=== PATIENT | female | born 1970 | race Caucasian/White ===

== ENCOUNTER 2016-07-03 22:07 | Inpatient (IN) ==
[2016-07-04 00:46] LABS: Bilirubin,Urine Negative (Negative); Blood,Urine Negative (Negative); Clarity,Urine Clear (Clear); Color,Urine Yellow (Yellow); Glucose,Urine (UA) Normal (Normal); Ketones,Urine Negative (Negative); Leukocyte Esterase,Urine Negative (Negative); Nitrite,Urine Negative (Negative); Protein,Urine 100 mg/dL (Neg-Trace); Specific Gravity,Urine 1.021 (1.010-1.025); Urobilinogen,Urine Normal (Normal)
[2016-07-04 00:49] LABS: Bacteria,Urine Few per hpf (None-Few); Hyaline Casts,Urine None Seen per lpf (None-Few); RBC,Urine 0-3 per hpf (0-3); Squamous Epithelial Cell,Urine Many per lpf (None-Few)
[2016-07-04 01:32] LABS: Basophils # 0.1 K/mcL (0.0-0.2); Basophils % 0.4 %; Eosinophils # 0.3 K/mcL (0.0-0.6); Eosinophils % 1.4 %; Hematocrit 43.8 % (35.3-44.9); Hemoglobin 15.1 g/dL (11.5-15.4); Immature Granulocytes % 0.3 % (0-4); Lymphocytes # 1.8 K/mcL (0.6-4.6); Lymphocytes % 10.1 %; Mean Corpuscular HGB Conc 34.5 g/dL (31.6-35.5); Mean Corpuscular Hemoglobin 30.5 pg (28.0-33.3); Mean Corpuscular Volume 88.5 fL (83.0-100.0); Mean Platelet Volume 11.1 fL (9.4-12.4); Monocytes # 0.9 K/mcL (0.0-1.3); Monocytes % 5.2 %; Neutrophils # 14.4 K/mcL (1.6-8.9); Platelet Count 339 K/mcL (140-400); Red Blood Count 4.95 M/mcL (3.82-4.97); Segmented Neutrophils % 82.6 %
[2016-07-04 01:48] LABS: Calcium 8.5 mg/dL (8.6-10.8); Potassium 3.2 mEq/L (3.5-4.5)
[2016-07-04] MEDS ORDERED: Ketorolac 60 MG/2 ML VIAL IM ONE (02:03)
[2016-07-04] MEDS ORDERED: 0.9 % Sodium Chloride 1,000 ML IVC ONE (03:53)
[2016-07-04] MEDS ORDERED: *HR* HYDROmorphone (PF) 1 MG/ML SYRINGE IVP ONE (04:02)
--- NOTE | 2016-07-04 04:13 | Emergency Department Note ---
Disposition Clinical Impression: Ureterolithiasis, Acute kidney injury Hydronephrosis Qualifiers: Hydronephrosis type: with renal calculous obstruction Qualified Code(s): N13.2 - Hydronephrosis with renal and ureteral calculous obstruction Disposition: Admitted As Inpatient Condition: Good General Adult HPI - General Chief complaint: ED Abdominal Pain Stated complaint: "Poss. Kidney Stone" Time Seen by Provider: 07/04/16 02:03 Source: patient Mode of arrival: private vehicle Limitations: no limitations Nursing Notes Reviewed: Yes Vital Signs Reviewed: Yes - History of Present Illness HPI Narrative: 46-year-old female history of multiple renal stones requiring extraction and stenting in the past who presents to the ER with a chief complaint of left flank pain. Patient reports symptoms began around Sunday. Reports intermittent left flank pain described as sharp. Patient is also had nausea but no vomiting or diarrhea. No fevers that she is aware. No sick contacts. Patient states it feels like when she usually has her kidney stones. Reports her last renal stone was back in July 2015 which required stent at that time. No other complaints. Pt Subjective Complaint: left flank pain, nausea Onset (ago): day(s) Location: other (Left flank) Radiation: non-radiation Pain Severity: severe Pain Scale: 8 Quality: stabbing Consistency: intermittent Improves with: nothing Worsens with: nothing Associated symptoms: Reports: nausea/vomiting. Denies: chest pain, cough, fever /chills Treatments Prior to Arrival: none - Related Data Home Medications Medication Instructions Recorded Confirmed Calcium Carbonate [Calcium] 500 mg PO DAILY 07/04/16 07/04/16 Cyanocobalamin (B-12) [Vitamin B12] 1,000 mcg IM Q2W 07/04/16 07/04/16 Esomeprazole Magnesium [Nexium 22.3 mg PO DAILY 07/04/16 07/04/16 24Hr] Ferrous Sulfate [Iron] 325 mg PO DAILY 07/04/16 07/04/16 Multivitamin [Multi-Day Vitamins] 1 tab PO DAILY 07/04/16 07/04/16 Vitamin B Complex 1 tab PO DAILY 07/04/16 07/04/16 Allergies Allergy/AdvReac Type Severity Reaction Status Date / Time Sulfa (Sulfonamide AdvReac causes Verified 07/04/16 00:20 Antibiotics) crohns flare up All systems ED: reviewed and negative except as stated. Constitutional: Denies: fever Cardiovascular: Denies: chest pain Respiratory: Denies: cough, dyspnea Gastrointestinal: Reports: abdominal pain, nausea. Denies: vomiting, diarrhea Genitourinary: Denies: dysuria, hematuria Musculoskeletal: Reports: back pain (Left flank pain) Past Medical History - Past Medical History Attestation: Yes The following information was validated with the patient. Source: patient Medical history: Reports: asthma, GERD, kidney stones, other Surgical history: Reports: cholecystectomy, hysterectomy, other Psychiatric history: Reports: no psych history - Social History Smoking Status: Never smoker Smokeless Tobacco Status: No Alcohol use: Reports: none Drug use: Reports: none Physical Exam - General Limitations: no limitations General appearance: alert, in no apparent distress - Head Head exam: atraumatic, normocephalic, normal inspection - Eye Eye exam: Present: normal appearance, EOMI - ENT ENT exam: normal exam - Neck Neck exam: Present: normal inspection - Chest Chest inspection: Present: normal inspection, symmetric chest wall rise - Respiratory Respiratory exam: Present: normal lung sounds bilaterally - Cardiovascular Cardiovascular exam: Present: normal rhythm, tachycardia, normal heart sounds - Abdominal Exam Abdominal exam: Present: soft, Non-Tender. Absent: tenderness - Extremities Exam Extremities exam: Present: normal inspection, full ROM - Expanded Upper Extremity Exam Shoulder exam: Present: normal inspection, full ROM Arm exam: Present: normal inspection, full ROM Elbow exam: Present: normal inspection, full ROM Forearm/Wrist exam: Present: normal inspection, full ROM Hand exam: Present: normal inspection, full ROM - Expanded Lower Extremity Exam Hip/Pelvis exam: Present: normal inspection, full ROM Upper leg exam: Present: normal inspection, full ROM Knee exam: Present: normal inspection, full ROM Lower leg exam: Present: normal inspection, full ROM Ankle exam: Present: normal inspection, full ROM Foot/toe exam: Present: normal inspection, full ROM - Back Exam Back exam: Present: CVA tenderness (L) (Patient exhibits left CVA tenderness with palpation.) - Neurological Exam Neurological exam: Present: alert - Psychiatric Psychiatric exam: Present: normal affect, normal mood - Skin Skin exam: Present: warm, dry, intact, normal color Course Course Narrative: Patient seen and examined. Vital signs reviewed. Patient has left flank pain on exam. Bedside ultrasound demonstrates a left hydro. We will get a CT scan of the abdomen and pelvis giving her acute kidney injury. We will also give her some fluids, Cipro for her white count and few WBCs and some pain control. - Reevaluation(s) Reevaluation #1: Discussed results of imaging with the patient. Her pain is currently under control. - Consultations Consultation #1: I discussed this case with the on-call urologist. They report to admit the patient to the hospitalist service and they will consult. Vital Signs Temperature 98.9 F 07/04/16 00:17 Pulse Rate 110 07/04/16 00:17 Respiratory Rate 20 07/04/16 00:17 Blood Pressure 137/88 07/04/16 00:17 O2 Sat by Pulse Oximetry 99 07/04/16 00:17 Temperature 98.2 F 07/05/16 00:41 Pulse Rate 78 07/05/16 00:41 Respiratory Rate 14 07/05/16 00:41 Blood Pressure 126/73 07/05/16 00:41 O2 Sat by Pulse Oximetry 94 L 07/05/16 00:41 Oxygen Delivery Oxygen Delivery Room Air Medical Decision Making - MDM Narrative Medical decision making narrative: 46-year-old female presents to the ER due to left flank pain. While known history of stones in the past. CT scan shows a 5 mm stone in the left mid ureter. Patient has acute kidney injury with a creatinine of 4.88. Patient given fluids, Cipro, Dilaudid here. Urology consulted in the ER. Admitted to the hospitalist service. - Lab Data Lab results reviewed: Yes I reviewed the patient's lab results. Result diagrams: 07/04/16 01:16 07/04/16 01:16 Lab Results 07/04/16 07/04/16 07/04/16 Range/Units 00:30 01:16 01:16 WBC 17.4 H (4.3-11.1) K/mcL RBC 4.95 (3.82-4.97) M/mcL Hgb 15.1 (11.5-15.4) g/dL Hct 43.8 (35.3-44.9) % MCV 88.5 (83.0-100.0) fL MCH 30.5 (28.0-33.3) pg MCHC 34.5 (31.6-35.5) g/dL RDW 13.0 (11.5-14.5) % Plt Count 339 (140-400) K/mcL MPV 11.1 (9.4-12.4) fL Immature Gran % 0.3 (0-4) % Seg Neutrophils % 82.6 % Lymphocytes % 10.1 % Monocytes % 5.2 % Eosinophils % 1.4 % Basophils % 0.4 % Neutrophils # 14.4 H (1.6-8.9) K/mcL Lymphocytes # 1.8 (0.6-4.6) K/mcL Monocytes # 0.9 (0.0-1.3) K/mcL Eosinophils # 0.3 (0.0-0.6) K/mcL Basophils # 0.1 (0.0-0.2) K/mcL Sodium 137 (136-145) mEq/L Potassium 3.2 L (3.5-4.5) mEq/L Chloride 107 (98-109) mEq/L Carbon Dioxide 15 L (19-29) mEq/L BUN 29 H (7-20) mg/dL Creatinine 4.88 H (0.57-1.11) mg/dL Est GFR ( Amer) 12 L (> 60) Est GFR (Non-Af Amer) 10 L (> 60) BUN/Creatinine Ratio 6 (6-26) Glucose 105 H (70-99) mg/dL Calculated Osmolality 290 (280-300) Calcium 8.5 L (8.6-10.8) mg/dL Urine Color Yellow (Yellow) Urine Clarity Clear (Clear) Urine pH 6.0 (5.0-8.0) pH Units Ur Specific [place] 1.021 (1.010-1.025) Urine Protein 100 H (Neg-Trace) mg/dL Urine Glucose (UA) Normal (Normal) mg/dL Urine Ketones Negative (Negative) mg/dL Urine Blood Negative (Negative) Urine Nitrite Negative (Negative) Urine Bilirubin Negative (Negative) Urine Urobilinogen Normal (Normal) mg/dL Ur Leukocyte Esterase Negative (Negative) Urine Microscopic RBC 0-3 (0-3) per hpf Urine Microscopic WBC 3-5 H (0-3) per hpf Ur Squamous Epith Cells Many H (None-Few) per lpf Urine Bacteria Few (None-Few) per hpf Hyaline Casts None Seen (None-Few) per lpf Ur Culture Indicated? NO (NO) - Radiology Data Radiology results reviewed: Yes I reviewed the patient's radiology results. Abdomen/Pelvis CT 07/04/16 03:51 IMPRESSION: Left-sided hydroureteronephrosis with stones in both kidneys and a 5 mm stone in the mid left ureter. D/ / Wes Melgar MD / Wes Melgar MD Interpreting Provider: Wes Melgar MD S.B.AKofi - S.Nyasia Situation: Demographics, MOA Background: Presenting Complaint, Relevant PMH, Meds, & Allergies Assessment: Vital Signs, Course and respsone to treatment, Exam Concerns, Patient/Family Expectation, Pertinant Lab Results, Outstanding Labs Recommendation: Barrier(s) to disposition, Recommendation based on pending studies, treatments, or consults SEzequiel Report Given to: Dr. Lamine Flores Repor Time: 05:57 Attestation Statement - Attestation Attestation: I personally interviewed and examined this patient and my medical decision- making was reviewed with the ED Resident Physician, Dr. Betts. I agree with the documented findings, disposition and treatment plan as described in the documentation. Patient is a 46-year-old white female with a history of prior kidney stones who presents to the emergency department today with worsening left flank pain. Patient denies any fevers chills, no vomiting, no urinary symptoms. Patient states it feels similar to prior kidney stones that she has passed and is isolated to the left flank area. Patient denies any abdominal pain. Patient with left flank tenderness to palpation on exam, abdomen is benign, soft and nontender to palpation with positive bowel sounds. Remainder of exams within normal limits. Agents labs are significant for worsening renal insufficiency with a significantly elevated creatinine from her baseline. Suspicious of possible obstructive uropathy CT was obtained showing a 5 mm obstructing stone on the left with left [place]. Patient with multiple stones in both kidneys. We will admit the patient for obstructive uropathy and renal insufficiency. Patient with a leukocytosis with a left shift, on initial assessment concerned with possible overlying infection so antibiotics were initiated here in the ED. Patient has remained hemodynamically stable.
--- NOTE | 2016-07-04 07:28 | Urology - Consult Note ---
Date of Encounter: 07/04/16 Time of Encounter: 07:18 - Assessment and Plan (1) Ureterolithiasis Current Visit: Yes Status: Acute Assessment and plan: plan on cysto and left ureteral stent today (2) Acute kidney injury Current Visit: Yes Status: Acute Assessment and plan: IVF and will likely improve with stent. per primary team Urology CN:PERRI Consult date: 07/04/16 Reason for consult Urology: Hydronephrosis Requesting physician: Jim Raman History of present illness: Saba is a 46-year-old female who presented emergency Department with severe left-sided flank pain. Patient was also not feeling well for the past couple days. She is a known history of kidney stones. Her last stone extraction was done in July 2015. Patient had a markedly elevated serum creatinine of 4.88. Her white count was also elevated. Her pain is currently controlled with IV pain medication at this time. She was found to have a left mid ureteral stone. Past Med Surg Social Fam HX - Past Medical History Medical history: asthma, GERD, kidney stones, renal disease, other Psychiatric history: no psych history, depression - Past Surgical History Surgical History: cholecystectomy, hysterectomy, other - Social History Smoking Status: Never smoker Smokeless Tobacco Status: No Alcohol use: none Drug use: none - Family History Mother Adopted: [place]: Rina Ball Age: 67 Family Member Ethnicity: Non- Living Status: Still Living Hx Family Cardiac Disorders: Yes (arrhythmia) Hx Family Respiratory Disorders: No Hx Family Cancer: No Hx Family GI Disorders: Yes (mild crohn's disease) Hx Family Genitourinary Disorders: No Hx Family Endocrine Disorder: Yes (boarderline diabetic) Hx Family Musculoskeletal Disorders: No Hx Family Neuromuscular Disorders: No Hx Family Neurologic Disorders: Yes (DDD, CVA) Hx Family HEENT Disorders: No Hx Family Autoimmune Disorders: Yes (Crohn's disease) Hx Family Reproductive Disorders: Yes (fibroids, miscarriages) Hx Family Psychosocial Disorders: No Hx Family Medical Disorders: No Medications and Allergies Cyanocobalamin (B-12) [Vitamin B12] 1,000 mcg IM Q2W 07/04/16 [History] Esomeprazole Magnesium [Nexium 24Hr] 22.3 mg PO DAILY 07/04/16 [History] Allergies Sulfa (Sulfonamide Antibiotics) Adverse Reaction (Verified 07/04/16 00:20) causes crohns flare up Review of Systems - Constitutional no chills - EENT Nose, mouth and throat: no dizziness - Cardiovascular no chest pain - Respiratory no cough - Gastrointestinal abdominal pain - Musculoskeletal back pain - Integumentary no erythema - Neurological no confusion - Psychiatric no anxiety - Hematologic/Lymphatic no easy bleeding - Allergic/Immunologic no throat swelling Exam Initial Vital Signs Temp Pulse Resp BP Pulse Ox 98.9 F 110 20 137/88 99 07/04/16 00:17 07/04/16 00:17 07/04/16 00:17 07/04/16 00:17 07/04/16 00:17 - General physical appearance Present: well developed - Eyes Present: PERRL - Neck Present: no masses - Respiratory Present: normal respiratory effort - Cardiovascular Cardiovascular exam IM: RRR - Abdomen Abdomen: Present: soft - Integumentary Present: no rash - Neurologic Present: normal coordination Urology Results - Labs 07/04/16 01:16 07/04/16 01:16 Abnormal lab results WBC 17.4 K/mcL (4.3-11.1) H 07/04/16 01:16 Neutrophils # 14.4 K/mcL (1.6-8.9) H 07/04/16 01:16 Potassium 3.2 mEq/L (3.5-4.5) L 07/04/16 01:16 Carbon Dioxide 15 mEq/L (19-29) L 07/04/16 01:16 BUN 29 mg/dL (7-20) H 07/04/16 01:16 Creatinine 4.88 mg/dL (0.57-1.11) H 07/04/16 01:16 Est GFR ( Amer) 12 (> 60) L 07/04/16 01:16 Est GFR (Non-Af Amer) 10 (> 60) L 07/04/16 01:16 Glucose 105 mg/dL (70-99) H 07/04/16 01:16 Calcium 8.5 mg/dL (8.6-10.8) L 07/04/16 01:16 Urine Protein 100 mg/dL (Neg-Trace) H 07/04/16 00:30 Urine Microscopic WBC 3-5 per hpf (0-3) H 07/04/16 00:30 Ur Squamous Epith Cells Many per lpf (None-Few) H 07/04/16 00:30 All other labs normal. - Imaging CT scan - abdomen: image reviewed CT scan - pelvis: image reviewed Consult Discharge Plan - Plan Referrals: Zoë Carrillo MD [Primary Care Provider] -
[2016-07-04] MEDS: 0.9 % Sodium Chloride 1,000 ML IVC SCH ×4 (08:03→23:09)
[2016-07-04] MEDS ORDERED: Ondansetron 4 MG/2 ML VIAL IVP PRN (08:06)
[2016-07-04] MEDS ORDERED: *HR* Promethazine 25 MG/ML VIAL IVP PRN ×2 (08:06→09:31)
[2016-07-04] MEDS ORDERED: Naloxone 0.4 MG/ML INJ IVP PRN (08:06)
[2016-07-04] MEDS ORDERED: Acetaminophen 325 MG TABLET PO PRN (08:06)
--- NOTE | 2016-07-04 08:35 | Anesthesia Evaluation PreOp ---
Date of Encounter: 07/04/16 Time of Encounter: 08:35 - Past History Planned Operation: Cysroscopy Left Ureteral Stent Cardiac History: Denies any Significant Hx Pulmonary History: Denies Any Significant HX TIME STUDY ANALYST History: Denies Any Significant HX Other Medical History: Renal (Acute Renal Failure), Other (Crohn's) Anesthesia History: No Prior Anesthetic Complications : No (Hysterectomy) Alcohol Use: none Drug use: none Medications and Allergies Calcium Carbonate [Calcium] 500 mg PO DAILY 07/04/16 [History] Cyanocobalamin (B-12) [Vitamin B12] 1,000 mcg IM Q2W 07/04/16 [History] Esomeprazole Magnesium [Nexium 24Hr] 22.3 mg PO DAILY 07/04/16 [History] Ferrous Sulfate [Iron] 325 mg PO DAILY 07/04/16 [History] Multivitamin [Multi-Day Vitamins] 1 tab PO DAILY 07/04/16 [History] Vitamin B Complex 1 tab PO DAILY 07/04/16 [History] Allergies Sulfa (Sulfonamide Antibiotics) Adverse Reaction (Verified 07/04/16 00:20) causes crohns flare up - Meds/Allergy Pre-op Review Medications Reviewed: Yes Allergies Reviewed: Yes Beta Blockers on Current Med List: No Anesthesia Results - Labs 07/04/16 01:16 07/04/16 01:16 Anesthesia Exam O2 Sat Height 1.57 m Weight 60.781 kg O2 Sat by Pulse Oximetry 98 O2 Sat by Pulse Oximetry 98 O2 Sat by Pulse Oximetry 98 O2 Sat by Pulse Oximetry 99 Vital Signs Temp Pulse Resp BP Pulse Ox 98.9 F 110 20 137/88 99 07/04/16 00:17 07/04/16 00:17 07/04/16 00:17 07/04/16 00:17 07/04/16 00:17 Height: 5'2 Weight: 134 lbs NPO (# of Hours): MN Pain Scale: 0 - HEENT Pupil (Motor): Pupils equal, EOMI Mallampati: II Teeth: Normal Oral Opening: Greater than 3 - TIME STUDY ANALYST LOC: Oriented TIME STUDY ANALYST Motor: Normal RUE, Normal LUE, Normal RLE, Normal LLE, Normal Face TIME STUDY ANALYST Sensory: Normal: RUE, LUE, RLE, LLE, Face - Cardiac Rhythm: Regular Murmur: None JVD: No Carotid Bruit: No - Pulmonary Breath Sounds: bilateral Clear Respiratory Effort: Symmetrical Anesthesia Assess/Plan ASA Score: 2 Modified Orange Scale for Level of Consciousness: Cooperative, oriented, and tranquil Anesthetic Plan: General Monitoring Plan: Standard Monitors Recovery Plan: PACU (Discussed GA, agrees to proceed)
[2016-07-04] MEDS ORDERED: *HR* Propofol 200 MG/20 ML VIAL IVP ONE (08:39)
[2016-07-04] MEDS ORDERED: Lidocaine -MPF 2% 2 ML VIAL ONE (08:39)
[2016-07-04] MEDS ORDERED: Dexamethasone 4 MG/ML VIAL ONE (08:39)
[2016-07-04] MEDS ORDERED: Ondansetron 4 MG/2 ML VIAL ONE (08:39)
[2016-07-04] MEDS ORDERED: *HR* FentaNYL (PF) 100 MCG/2 ML VIAL ONE (08:39)
[2016-07-04] MEDS ORDERED: *HR* Meperidine 25 MG/ML SYRINGE IVP PRN (09:31)
[2016-07-04] MEDS ORDERED: *HR* OxyCODONE/APAP 5/325 TABLET PO PRN (09:31)
--- NOTE | 2016-07-04 09:39 | Anesthesia Evaluation Post Op ---
Date of Encounter: 07/04/16 Time of Encounter: 09:39 - Vital Signs Vital Signs: vss - Lungs Lungs: Clear Ascult./Percussion - Airway Airway: Non-obstructed - Cardiovascular Baseline Rhythm - Mental Status Mental Status: Alert & Oriented, Answers Appropriately - Pain Pain Scale used: Ana (Faces) - Nausea Vomiting Nausea Vomiting: Not Present - Hydration Hydration: Tolerates oral liquids
[2016-07-04] MEDS: Piperacillin/Tazobactam 3.375 GM in D5% in Water (Mini-Bag+) 100 ML IVPB SCH ×2 (10:22→22:02)
[2016-07-04 11:13] LABS: INR 1.1; Prothrombin Time 11.8 Seconds (9.4-12.1)
[2016-07-04 11:16] LABS: Activated Partial Thrombo Time 28.3 Seconds (26.0-36.0)
--- NOTE | 2016-07-04 11:37 | Operative Note ---
Date of procedure: 07/04/16 Pre-op diagnosis: left ureteral stone and acute renal failure Post-op diagnosis: same Procedure: Cystoscopy and left 4.8 x 26 cm ureteral stent placement Anesthesia: ENEA Surgeon: Vernon Price Condition: stable Disposition: PACU Procedure in Detail: The patient was prepped and draped in normal sterile fashion. Timeout procedure performed. I then placed the rigid cystoscope into the patient's bladder and cannulated the left ureteral orifice using a Glidewire. I could not visualize the mid ureteral stone but the wire curled easily in the kidney. Immediate return of hydronephrotic urine was noted. I then placed a 4.8 x 26 cm stent with good curl seen in the kidney and in the bladder on the left side. Bladder was drained and procedure was ended.
[2016-07-04] MEDS: *HR* HYDROmorphone (PF) 1 MG/ML SYRINGE IVP PRN ×2 (14:20→23:14)
--- NOTE | 2016-07-04 16:11 | Internal Med History&Physical ---
Date of Encounter: 07/04/16 Time of Encounter: 13:00 Assessment and Plan (1) Obstructive uropathy Current visit: Yes Status: Acute No status post stent placement with relief of obstruction. We will provide IV fluid hydration and monitor kidney function. Replete electrolytes as needed. (2) Acute kidney injury Current visit: No Status: Acute IV fluids. Check BUN and creatinine in the morning. Urinalysis and culture. Avoid nephrotoxins including NSAIDs. (3) Pyelonephritis Current visit: No Status: Acute We will treat her with IV Zosyn to cover gram-negative rods and gram-positive cocci. Pain control with IV hydromorphone. The patient is at high risk for morbidity mortality and complications due to systemic infection and treatment with IV Dilaudid. (4) Crohns disease Current visit: No Status: Chronic No acute issue. Qualifiers: Gastrointestinal tract location: small intestine Digestive disease complication type: unspecified complication Qualified Code(s): K50.019 - Crohn 's disease of small intestine with unspecified complications (5) DVT prophylaxis Current visit: No Status: Acute Subcutaneous heparin. (6) Sepsis due to urinary tract infection Current visit: Yes Status: Acute IV fluids. Lactic acid was obtained and was less than 2. Follow-up urine culture and blood culture. Broad spectrum IV antibiotics. Internal Medicine - H&P: HPI Chief complaint: L flank pain Admitted From: Home Plans for Post Hospital Care: Home History of present illness: Ms. Cordero is a 46 year old female with Crohn's disease and multiple kidney stones who presented to the hospital for sudden onset left flank pain which started 3 days ago and was described as sharp, 6/10 in intensity. She tried to keep good oral hydration however pain persisted. She took some Advil with no relief so she presented to the hospital. She reports associated nausea and no vomiting or diarrhea. Workup in the emergency department revealed obstructive nephropathy and renal failure. She was taken to the OR and had a left ureteral stent placement. She tolerated the procedure well and is currently post procedure. A 10 point review of systems was performed and positive as above. Also positive for recurrent kidney stones, positive for depression and anxiety which is well controlled, diarrhea and constipation secondary to Crohn's disease, positive for seasonal allergies, negative for abnormal bleeding and bruising, joint aches and pains, skin rashes. The remainder of 10 History of systems was negative Past medical history as above Past surgical history 4 C-sections and hysterectomy and small bowel resection. Family history was negative for premature coronary artery disease in both parents. Social history the patient denies tobacco: Drug use. She is a homemaker Past Med Surg Social Fam HX - Past Medical History Medical history: asthma, GERD, kidney stones, renal disease, other Psychiatric history: no psych history, depression - Past Surgical History Surgical History: cholecystectomy, hysterectomy, other - Social History Smoking Status: Never smoker Smokeless Tobacco Status: No Alcohol use: none Drug use: none - Family History Mother Adopted: [place]: Rina Ball Age: 67 Family Member Ethnicity: Non- Living Status: Still Living Hx Family Cardiac Disorders: Yes (arrhythmia) Hx Family Respiratory Disorders: No Hx Family Cancer: No Hx Family GI Disorders: Yes (mild crohn's disease) Hx Family Genitourinary Disorders: No Hx Family Endocrine Disorder: Yes (boarderline diabetic) Hx Family Musculoskeletal Disorders: No Hx Family Neuromuscular Disorders: No Hx Family Neurologic Disorders: Yes (DDD, CVA) Hx Family HEENT Disorders: No Hx Family Autoimmune Disorders: Yes (Crohn's disease) Hx Family Reproductive Disorders: Yes (fibroids, miscarriages) Hx Family Psychosocial Disorders: No Hx Family Medical Disorders: No Internal Medicine - H&P: Meds Calcium Carbonate [Calcium] 500 mg PO DAILY 07/04/16 [History] Cyanocobalamin (B-12) [Vitamin B12] 1,000 mcg IM Q2W 07/04/16 [History] Esomeprazole Magnesium [Nexium 24Hr] 22.3 mg PO DAILY 07/04/16 [History] Ferrous Sulfate [Iron] 325 mg PO DAILY 07/04/16 [History] Multivitamin [Multi-Day Vitamins] 1 tab PO DAILY 07/04/16 [History] Vitamin B Complex 1 tab PO DAILY 07/04/16 [History] Allergies Sulfa (Sulfonamide Antibiotics) Adverse Reaction (Verified 07/04/16 00:20) causes crohns flare up All Systems PM: A 10-system review of systems was performed and is negative for pertinent findings except as documented above in the HPI. - Constitutional Vitals: Temp Pulse Resp BP Pulse Ox 98.9 F 87 20 109/64 95 07/04/16 15:46 07/04/16 15:46 07/04/16 15:46 07/04/16 15:46 07/04/16 15:46 - Head Head exam: Present: atraumatic, normocephalic - Neck Neck exam general surgery: Present: supple, trachea midline. Absent: lymphadenopathy - Respiratory Respiratory exam: Present: CTAB. Absent: accessory muscle use, rales, rhonchi, wheezes - Cardiovascular Cardiovascular exam: Present: RRR, +S1, +S2. Absent: diastolic murmur, gallop, rubs, systolic murmur - GI/Abdominal GI/Abdominal exam: Present: normal bowel sounds, soft, no peritoneal signs. Absent: distended, tenderness - Additional comments: L CVA tenderness - Extremities Exam Extremities exam: Present: warm, radial pulses palpable and symetrical. Absent : calf tenderness, cyanotic, pedal edema - Neurological Exam Neurological exam: Present: CN II-XII intact, oriented X3, no focal deficits. Absent: pronater drift, facial droop, speech deficit - Skin Skin exam: Present: dry, intact Internal Med - H&P Results - Labs CBC & Chem 7: 07/04/16 01:16 07/04/16 01:16 - Impressions ITS Impressions Fluoroscopy 07/04/16 09:05 IMPRESSION: Intraprocedural fluoroscopic spot images as above. See separate procedure report for more information. D/ / 07/04/2016 09:21:35 Franny Felix MD / earnold Interpreting Provider: Franny Felix MD
[2016-07-04] MEDS: *HR* Heparin 5,000 UNIT/ML VIAL SQ SCH (18:35)
[2016-07-04] MEDS: Famotidine 20 MG/2 ML VIAL IVP SCH (18:35)
[2016-07-05] MEDS: Famotidine 20 MG/2 ML VIAL IVP SCH ×2 (05:12→20:16)
[2016-07-05] MEDS: *HR* Heparin 5,000 UNIT/ML VIAL SQ SCH ×2 (05:12→19:59)
[2016-07-05] MEDS: 0.9 % Sodium Chloride 1,000 ML IVC SCH (05:13)
[2016-07-05 07:35] LABS: Basophils # 0.1 K/mcL (0.0-0.2); Basophils % 0.6 %; Eosinophils # 0.2 K/mcL (0.0-0.6); Eosinophils % 1.6 %; Hemoglobin 11.2 g/dL (11.5-15.4); Immature Granulocytes % 0.5 % (0-4); Immature Platelets 5.2 % (1.1-6.1); Lymphocytes # 2.7 K/mcL (0.6-4.6); Lymphocytes % 26.3 %; Mean Corpuscular HGB Conc 32.9 g/dL (31.6-35.5); Mean Corpuscular Hemoglobin 29.7 pg (28.0-33.3); Mean Corpuscular Volume 90.2 fL (83.0-100.0); Mean Platelet Volume 11.6 fL (9.4-12.4); Monocytes # 0.5 K/mcL (0.0-1.3); Monocytes % 5.2 %; Neutrophils # 6.8 K/mcL (1.6-8.9); Platelet Count 264 K/mcL (140-400); Red Blood Count 3.77 M/mcL (3.82-4.97); Red Cell Distribution Width 13.1 % (11.5-14.5); Segmented Neutrophils % 65.8 %
[2016-07-05 08:48] LABS: Calcium 7.4 mg/dL (8.6-10.8); Magnesium 0.9 mg/dL (1.6-2.6); Potassium 3.3 mEq/L (3.5-4.5)
[2016-07-05] MEDS: Piperacillin/Tazobactam 3.375 GM in D5% in Water (Mini-Bag+) 100 ML IVPB SCH (10:23)
[2016-07-05] MEDS: *HR* HYDROmorphone (PF) 1 MG/ML SYRINGE IVP PRN ×2 (10:38→22:29)
[2016-07-05] MEDS ORDERED: Magnesium Sulfate 2 GM in D5% in Water 100 ML IVPB ONE (11:56)
[2016-07-05] MEDS ORDERED: Piperacillin/Tazobactam 3.375 GM in D5% in Water (Mini-Bag+) 100 ML IVPB SCH (11:59)
--- NOTE | 2016-07-05 12:49 | Urology Progress Note ---
Date of Encounter: 07/05/16 Time of Encounter: 12:48 - Assessment and Plan (1) Ureterolithiasis Current Visit: Yes Status: Acute Assessment and plan: sp stenting. tolerating stent well (2) Acute kidney injury Current Visit: Yes Status: Acute Assessment and plan: improving. recommend one more check tomorrow morning before dc. Progress Note Narrative: POD 1 from ureteral stent placement. feeling good. creatinine down. Objective Initial Vital Signs Temp Pulse Resp BP Pulse Ox 98.9 F 110 20 137/88 99 07/04/16 00:17 07/04/16 00:17 07/04/16 00:17 07/04/16 00:17 07/04/16 00:17 - General physical appearance Present: well developed - Abdomen Present: soft - Labs 07/05/16 07:05 07/05/16 07:05 Diabetes panel 07/05/16 Range/Units 07:05 Sodium 140 (136-145) mEq/L Potassium 3.3 L (3.5-4.5) mEq/L Chloride 115 H (98-109) mEq/L Carbon Dioxide 16 L (19-29) mEq/L BUN 25 H (7-20) mg/dL Creatinine 2.85 H (0.57-1.11) mg/dL Glucose 91 (70-99) mg/dL Calcium 7.4 L (8.6-10.8) mg/dL Calcium panel 07/05/16 Range/Units 07:05 Calcium 7.4 L (8.6-10.8) mg/dL Pituitary panel 07/05/16 Range/Units 07:05 Sodium 140 (136-145) mEq/L Potassium 3.3 L (3.5-4.5) mEq/L Chloride 115 H (98-109) mEq/L Carbon Dioxide 16 L (19-29) mEq/L BUN 25 H (7-20) mg/dL Creatinine 2.85 H (0.57-1.11) mg/dL Glucose 91 (70-99) mg/dL Calcium 7.4 L (8.6-10.8) mg/dL Adrenal panel 07/05/16 Range/Units 07:05 Sodium 140 (136-145) mEq/L Potassium 3.3 L (3.5-4.5) mEq/L Chloride 115 H (98-109) mEq/L Carbon Dioxide 16 L (19-29) mEq/L BUN 25 H (7-20) mg/dL Creatinine 2.85 H (0.57-1.11) mg/dL Glucose 91 (70-99) mg/dL Calcium 7.4 L (8.6-10.8) mg/dL Consult Discharge Plan - Plan Referrals: Vernon Price MD [Partnered Physician] - Zoë Carrillo MD [Primary Care Provider] -
[2016-07-05] MEDS: Ringers Solution, Lactated 1,000 ML IVC SCH (13:29)
--- NOTE | 2016-07-05 13:54 | Internal Med Progress Note ---
<Kailash Torres - Last Filed: 07/05/16 17:18> Date of Encounter: 07/05/16 Time of Encounter: 10:30 - Assessment and plan (1) Pyelonephritis Current Visit: No Status: Acute Assessment and plan: - Complicated pyelonephritis associated with obstructive uropathy. - Urine culture no growth. - Symptomatically improves with WBC normalized. - Will switch from Zosyn to ceftriaxone. - Continue IV fluid. - Closely monitor. (2) Obstructive uropathy Current Visit: Yes Status: Acute Assessment and plan: - Status post left ureteral stent placement on 07/04. - Continue IV fluid. - Urine output 500 cc so far today. - Appreciate urology follow-up. (3) Acute kidney injury Current Visit: No Status: Acute Assessment and plan: - SCr 4.88 on admission, most likely due to postrenal obstruction. - Improves with SCr 2.85 today but not back to baseline (~1.0) yet. - Will change IV fluid to LR given BMP today suggests hyperchloremic non-anion gap metabolic acidosis. - Closely monitor renal function and electrolytes. (4) Hypokalemia Current Visit: Yes Status: Acute Assessment and plan: - K at 3.2 today. Also hypomagnesemia with Mg 0.9 today - Will give 20 meq of KCl PO today while giving 3 g of Mg supplement. - Continue to monitor. (5) Sepsis due to urinary tract infection Current Visit: Yes Status: Resolved Assessment and plan: - 2 SIRS criteria (tachycardia and leukocytosis) on admission with UTI as most likely source of infection. Lactic acid at 0.8. - Resolved as heart rate and WBC normalized. - Urine culture no growth. Blood cultures NGTD. (6) Crohns disease Current Visit: No Status: Chronic Assessment and plan: - No acute problem at this time. Qualifiers: Gastrointestinal tract location: small intestine Digestive disease complication type: unspecified complication Qualified Code(s): K50.019 - Crohn 's disease of small intestine with unspecified complications (7) DVT prophylaxis Current Visit: No Status: Acute Assessment and plan: - SQ heparin. - Subjective Interval history: No significant event noted overnight. Patient was seen and examined this morning. Patient reports pain significantly improves after the left ureteral stent placement. She has some mild nausea and diarrhea this morning but thinks it's from restarting diet after being NPO for several days. Patient denies fever , chills, vomiting. She still has some hematuria but denies dysuria or difficulty urinating. - Constitutional Vitals: Temp Pulse Resp BP Pulse Ox 98.6 F 83 16 103/66 98 07/05/16 11:00 07/05/16 11:00 07/05/16 11:00 07/05/16 11:00 07/05/16 11:00 General appearance: Present: cooperative, A&O X 3, no acute distress, answers questions appropriately - Head Head exam: Present: atraumatic, normocephalic - Eye Eye exam: Present: PERRL, conjuntiva pink, sclera anicteric Pupils: Present: PERRL - Neck Neck exam general surgery: Present: supple, trachea midline. Absent: lymphadenopathy - Respiratory Respiratory exam: Present: CTAB. Absent: accessory muscle use, rales, rhonchi, wheezes - Cardiovascular Cardiovascular exam: Present: RRR, +S1, +S2. Absent: diastolic murmur, gallop, rubs, systolic murmur - GI/Abdominal GI/Abdominal exam: Present: normal bowel sounds, soft, no peritoneal signs. Absent: distended, tenderness - Extremities Exam Extremities exam: Present: warm, radial pulses palpable and symetrical. Absent : calf tenderness, cyanotic, pedal edema - Neurological Exam Neurological exam: Present: CN II-XII intact, oriented X3, no focal deficits. Absent: pronater drift, facial droop, speech deficit - Skin Skin exam: Present: dry, intact. Absent: rash Internal Medicine: Result - Labs CBC & Chem 7: 07/05/16 07:05 07/05/16 07:05 Labs: Short CBC 07/05/16 Range/Units 07:05 WBC 10.3 (4.3-11.1) K/mcL Hgb 11.2 L D (11.5-15.4) g/dL Hct 34.0 L (35.3-44.9) % Plt Count 264 (140-400) K/mcL Neutrophils # 6.8 (1.6-8.9) K/mcL BMP 07/05/16 07:05 Sodium 140 Potassium 3.3 L Chloride 115 H Carbon Dioxide 16 L BUN 25 H Creatinine 2.85 H Glucose 91 Calcium 7.4 L - ABG Interpretation ABG results: PT/INR, D-dimer PT 11.8 Seconds (9.4-12.1) 07/04/16 10:57 Consult Discharge Plan - Plan Referrals: Vernon Price MD [Partnered Physician] - Zoë Carrillo MD [Primary Care Provider] - <Yamini Parrish - Last Filed: 07/05/16 17:35> - Constitutional Vitals: Temp Pulse Resp BP Pulse Ox 98.8 F 98 16 102/62 99 07/05/16 15:08 07/05/16 15:08 07/05/16 15:08 07/05/16 15:08 07/05/16 15:08 Internal Medicine: Result - Labs CBC & Chem 7: 07/05/16 07:05 07/05/16 07:05 Labs: Short CBC 07/05/16 Range/Units 07:05 WBC 10.3 (4.3-11.1) K/mcL Hgb 11.2 L D (11.5-15.4) g/dL Hct 34.0 L (35.3-44.9) % Plt Count 264 (140-400) K/mcL Neutrophils # 6.8 (1.6-8.9) K/mcL BMP 07/05/16 07:05 Sodium 140 Potassium 3.3 L Chloride 115 H Carbon Dioxide 16 L BUN 25 H Creatinine 2.85 H Glucose 91 Calcium 7.4 L - ABG Interpretation ABG results: PT/INR, D-dimer PT 11.8 Seconds (9.4-12.1) 07/04/16 10:57 - Attending Attestation I examined this patient and reviewed laboratory, imaging and all diagnostic data. My medical decision-making was reviewed with Dr Torres - Resident Physician. I agree with the documented findings, disposition and treatment plan as described above.
[2016-07-05] MEDS: Magnesium Sulfate 1 GM in D5% in Water 100 ML IVPB ONE ×2 (13:59→20:18)
[2016-07-06 05:20] LABS: Basophils # 0.1 K/mcL (0.0-0.2); Basophils % 0.7 %; Eosinophils # 0.5 K/mcL (0.0-0.6); Hematocrit 34.7 % (35.3-44.9); Immature Granulocytes % 0.2 % (0-4); Lymphocytes # 2.6 K/mcL (0.6-4.6); Lymphocytes % 32.1 %; Mean Corpuscular HGB Conc 33.1 g/dL (31.6-35.5); Mean Corpuscular Hemoglobin 29.4 pg (28.0-33.3); Mean Corpuscular Volume 88.7 fL (83.0-100.0); Mean Platelet Volume 11.1 fL (9.4-12.4); Monocytes # 0.4 K/mcL (0.0-1.3); Monocytes % 5.4 %; Neutrophils # 4.5 K/mcL (1.6-8.9); Platelet Count 283 K/mcL (140-400); Red Blood Count 3.91 M/mcL (3.82-4.97); Red Cell Distribution Width 13.2 % (11.5-14.5); Segmented Neutrophils % 55.6 %
[2016-07-06 05:39] LABS: Hemoglobin 11.5 g/dL (11.5-15.4)
[2016-07-06] MEDS: Famotidine 20 MG/2 ML VIAL IVP SCH ×2 (05:40→18:46)
[2016-07-06] MEDS: *HR* Heparin 5,000 UNIT/ML VIAL SQ SCH ×2 (05:40→18:50)
[2016-07-06] MEDS: Ringers Solution, Lactated 1,000 ML IVC SCH ×3 (05:41→18:49)
[2016-07-06 05:44] LABS: Calcium 7.9 mg/dL (8.6-10.8)
[2016-07-06 05:47] LABS: Potassium 3.6 mEq/L (3.5-4.5)
[2016-07-06] MEDS ORDERED: Magnesium Sulfate 1 GM in D5% in Water 100 ML IVPB ONE ×2 (09:25→12:00)
[2016-07-06] MEDS: *HR* HYDROmorphone (PF) 1 MG/ML SYRINGE IVP PRN (11:22)
--- NOTE | 2016-07-06 11:42 | Internal Med Progress Note ---
<Kailash Torres - Last Filed: 07/06/16 14:03> Date of Encounter: 07/06/16 Time of Encounter: 11:00 - Assessment and plan (1) Pyelonephritis Current Visit: No Status: Acute Assessment and plan: - Complicated pyelonephritis associated with obstructive uropathy. - Urine culture no growth. - Symptomatically improves with WBC normalized. - Patient had temperature 99.5 today, will get UA with reflex micro & culture - Continue ceftriaxone for now. - Continue IV fluid. - Closely monitor. (2) Obstructive uropathy Current Visit: Yes Status: Acute Assessment and plan: - Status post left ureteral stent placement on 07/04. - Continue IV fluid. - Urine output 2100 cc so far today. - Appreciate urology follow-up. (3) Acute kidney injury Current Visit: No Status: Acute Assessment and plan: - SCr 4.88 on admission, most likely due to postrenal obstruction. - Continue to improve with SCr 1.73 today but not back to baseline (~1.0) yet. - Continue IV LR. - Closely monitor renal function and electrolytes. (4) Hypokalemia Current Visit: Yes Status: Acute Assessment and plan: - K improves to 3.6 today with Mg 1.3 today - Will give 1 g of Mg sulfate IV. - Continue to monitor. (5) Sepsis due to urinary tract infection Current Visit: Yes Status: Resolved Assessment and plan: - 2 SIRS criteria (tachycardia and leukocytosis) on admission with UTI as most likely source of infection. Lactic acid at 0.8. - Resolved as heart rate and WBC normalized. - Urine culture no growth. Blood cultures NGTD. (6) Crohns disease Current Visit: No Status: Chronic Assessment and plan: - Patient thinks her current nausea and diarrhea are from her Crohn's disease which usually gives her those symptoms but no temperature. Qualifiers: Gastrointestinal tract location: small intestine Digestive disease complication type: unspecified complication Qualified Code(s): K50.019 - Crohn 's disease of small intestine with unspecified complications (7) DVT prophylaxis Current Visit: No Status: Acute Assessment and plan: - SQ heparin. - Subjective Interval history: No significant event noted overnight. Patient was seen and examined this morning. Patient reports left flank pain about the same as yesterday. She still has some mild nausea and diarrhea this morning but thinks bothering her a lot. Patient reports having a temperature earlier. She denies chills, vomiting. She still has some hematuria but denies dysuria or difficulty urinating. - Constitutional Vitals: Temp Pulse Resp BP Pulse Ox 99.5 F 92 18 124/65 98 07/06/16 10:45 07/06/16 10:45 07/06/16 10:45 07/06/16 10:45 07/06/16 10:45 General appearance: Present: cooperative, A&O X 3, no acute distress, answers questions appropriately - Head Head exam: Present: atraumatic, normocephalic - Eye Eye exam: Present: PERRL, conjuntiva pink, sclera anicteric - Neck Neck exam general surgery: Present: supple, trachea midline. Absent: lymphadenopathy - Respiratory Respiratory exam: Present: CTAB. Absent: accessory muscle use, rales, rhonchi, wheezes - Cardiovascular Cardiovascular exam: Present: RRR, +S1, +S2. Absent: diastolic murmur, gallop, rubs, systolic murmur - GI/Abdominal GI/Abdominal exam: Present: normal bowel sounds, soft, no peritoneal signs. Absent: distended, tenderness - Extremities Exam Extremities exam: Present: pedal edema (Mild), warm, radial pulses palpable and symetrical. Absent: calf tenderness, cyanotic - Back Exam Back exam: Present: tenderness (Some left flank tenderness to palpation.) - Neurological Exam Neurological exam: Present: CN II-XII intact, oriented X3, no focal deficits. Absent: pronater drift, facial droop, speech deficit - Skin Skin exam: Present: dry, intact Internal Medicine: Result - Labs CBC & Chem 7: 07/06/16 04:53 07/06/16 04:53 Labs: Short CBC 07/06/16 Range/Units 04:53 WBC 8.0 (4.3-11.1) K/mcL Hgb 11.5 (11.5-15.4) g/dL Hct 34.7 L (35.3-44.9) % Plt Count 283 (140-400) K/mcL Neutrophils # 4.5 (1.6-8.9) K/mcL BMP 07/06/16 04:53 Sodium 141 Potassium 3.6 Chloride 114 H Carbon Dioxide 17 L BUN 17 Creatinine 1.73 H Glucose 100 H Calcium 7.9 L - ABG Interpretation ABG results: PT/INR, D-dimer PT 11.8 Seconds (9.4-12.1) 07/04/16 10:57 - Impressions Impressions Fluoroscopy 07/04/16 09:05 IMPRESSION: Intraprocedural fluoroscopic spot images as above. See separate procedure report for more information. D/ / 07/04/2016 09:21:35 Franny Felix MD / [email or web address] Interpreting Provider: Franny Felix MD Consult Discharge Plan - Plan Referrals: Vernon Price MD [Partnered Physician] - Zoë Carrillo MD [Primary Care Provider] - <Yamini Parrish E - Last Filed: 07/06/16 18:54> - Constitutional Vitals: Temp Pulse Resp BP Pulse Ox 98.5 F 82 18 111/66 96 07/06/16 15:12 07/06/16 15:12 07/06/16 15:12 07/06/16 15:12 07/06/16 15:12 Internal Medicine: Result - Labs CBC & Chem 7: 07/06/16 04:53 07/06/16 04:53 Labs: Short CBC 07/06/16 Range/Units 04:53 WBC 8.0 (4.3-11.1) K/mcL Hgb 11.5 (11.5-15.4) g/dL Hct 34.7 L (35.3-44.9) % Plt Count 283 (140-400) K/mcL Neutrophils # 4.5 (1.6-8.9) K/mcL BMP 07/06/16 04:53 Sodium 141 Potassium 3.6 Chloride 114 H Carbon Dioxide 17 L BUN 17 Creatinine 1.73 H Glucose 100 H Calcium 7.9 L Urine 07/06/16 Range/Units 11:58 Urine Color Yellow (Yellow) Urine Clarity Cloudy A (Clear) Urine pH 6.5 (5.0-8.0) pH Units Ur Specific [place] 1.008 L (1.010-1.025) Urine Protein 30 H (Neg-Trace) mg/dL Urine Glucose (UA) Normal (Normal) mg/dL - ABG Interpretation ABG results: PT/INR, D-dimer PT 11.8 Seconds (9.4-12.1) 07/04/16 10:57 - Impressions Impressions Fluoroscopy 07/04/16 09:05 IMPRESSION: Intraprocedural fluoroscopic spot images as above. See separate procedure report for more information. D/ / 07/04/2016 09:21:35 Franny Felix MD / [email or web address] Interpreting Provider: Franny Felix MD - Attending Attestation I examined this patient and reviewed laboratory, imaging and all diagnostic data. My medical decision-making was reviewed with Kailash Clark - Resident Physician. I agree with the documented findings, disposition and treatment plan as described above.
[2016-07-06 12:10] LABS: Bilirubin,Urine Negative (Negative); Blood,Urine Large (Negative); Clarity,Urine Cloudy (Clear); Color,Urine Yellow (Yellow); Glucose,Urine (UA) Normal (Normal); Ketones,Urine Negative (Negative); Leukocyte Esterase,Urine Small (Negative); Nitrite,Urine Negative (Negative); PH,Urine 6.5 pH Units (5.0-8.0); Protein,Urine 30 mg/dL (Neg-Trace); Specific Gravity,Urine 1.008 (1.010-1.025); Urobilinogen,Urine Normal (Normal)
[2016-07-06 12:12] LABS: Bacteria,Urine None Seen per hpf (None-Few); Hyaline Casts,Urine None Seen per lpf (None-Few); RBC,Urine TNTC per hpf (0-3); Squamous Epithelial Cell,Urine Many per lpf (None-Few)
[2016-07-07] MEDS: *HR* HYDROmorphone (PF) 1 MG/ML SYRINGE IVP PRN (04:21)
[2016-07-07] MEDS: Ringers Solution, Lactated 1,000 ML IVC SCH (04:22)
[2016-07-07 04:37] LABS: Basophils % 0.5 %; Eosinophils # 0.5 K/mcL (0.0-0.6); Eosinophils % 5.4 %; Hematocrit 36.5 % (35.3-44.9); Hemoglobin 12.4 g/dL (11.5-15.4); Immature Granulocytes % 0.2 % (0-4); Lymphocytes # 2.1 K/mcL (0.6-4.6); Lymphocytes % 24.1 %; Mean Corpuscular Hemoglobin 29.5 pg (28.0-33.3); Mean Corpuscular Volume 86.9 fL (83.0-100.0); Mean Platelet Volume 11.5 fL (9.4-12.4); Monocytes # 0.5 K/mcL (0.0-1.3); Monocytes % 5.4 %; Neutrophils # 5.7 K/mcL (1.6-8.9); Platelet Count 298 K/mcL (140-400); Red Cell Distribution Width 12.9 % (11.5-14.5); Segmented Neutrophils % 64.4 %
[2016-07-07 04:55] LABS: BUN/Creatinine Ratio 8 (6-26); Blood Urea Nitrogen 9 mg/dL (7-20); Calcium 8.6 mg/dL (8.6-10.8); Carbon Dioxide 20 mEq/L (19-29); Chloride 111 mEq/L (98-109); Glucose 99 mg/dL (70-99); Osmolality,Calculated 289 (280-300); Potassium 2.9 mEq/L (3.5-4.5); Sodium 140 mEq/L (136-145); eGFR For African Americans > 60 (> 60); eGFR For Non-African Americans 56 (> 60)
[2016-07-07] MEDS: *HR* Heparin 5,000 UNIT/ML VIAL SQ SCH (05:54)
[2016-07-07] MEDS: Famotidine 20 MG/2 ML VIAL IVP SCH (05:54)
[2016-07-07] MEDS ORDERED: Magnesium Sulfate 2 GM in D5% in Water 100 ML IVPB ONE ×2 (07:22→09:00)
[2016-07-07] MEDS ORDERED: Magnesium Sulfate 1 GM in D5% in Water 100 ML IVPB ONE (07:41)
[2016-07-07] MEDS: Magnesium Oxide 400 MG TABLET PO SCH ×2 (13:32→17:07)
--- NOTE | 2016-07-07 14:12 | Discharge Summary ---
<Kailash Torres - Last Filed: 07/07/16 16:31> Date of Encounter: 07/07/16 Time of Encounter: 11:00 - Discharge Diagnosis (1) Pyelonephritis Priority: Primary Status: Acute (2) Obstructive uropathy Priority: Primary Status: Acute (3) Acute kidney injury Priority: Secondary Status: Resolved (4) Hypomagnesemia Priority: Secondary Status: Acute (5) Hypokalemia Priority: Secondary Status: Acute (6) Crohns disease Priority: Secondary Status: Chronic Qualifiers: Gastrointestinal tract location: small intestine Digestive disease complication type: unspecified complication Qualified Code(s): K50.019 - Crohn 's disease of small intestine with unspecified complications (7) Sepsis due to urinary tract infection Priority: Secondary Status: Resolved - Discharge Medications Prescriptions: HYDROcodone/Acet 5/325 mg [[place] 5-325 mg] 1 tab PO Q6H PRN #20 tab PRN Reason: Severe Pain Levofloxacin 500 mg PO DAILY #7 tablet Magnesium Oxide [Mag-Ox] 400 mg PO TID #90 tablet Home Medications: Calcium Carbonate [Calcium] 500 mg PO DAILY 07/04/16 [History] Cyanocobalamin (B-12) [Vitamin B12] 1,000 mcg IM Q2W 07/04/16 [History] Esomeprazole Magnesium [Nexium 24Hr] 22.3 mg PO DAILY 07/04/16 [History] Ferrous Sulfate [Iron] 325 mg PO DAILY 07/04/16 [History] Multivitamin [Multi-Day Vitamins] 1 tab PO DAILY 07/04/16 [History] Vitamin B Complex 1 tab PO DAILY 07/04/16 [History] HYDROcodone/Acet 5/325 mg [[place] 5-325 mg] 1 tab PO Q6H PRN #20 tab 07/07/16 [Rx ] Levofloxacin 500 mg PO DAILY #7 tablet 07/07/16 [Rx] Magnesium Oxide [Mag-Ox] 400 mg PO TID #90 tablet 07/07/16 [Rx] Allergies/Adverse Reactions: Allergies Sulfa (Sulfonamide Antibiotics) Adverse Reaction (Verified 07/04/16 00:20) causes crohns flare up Date of admission: 07/04/16 08:16 Primary care physician: Zoë Carrillo Consults: [facility] Discharging clinician: Kailash Torres Anticipated date of discharge: 07/07/16 - Patient Status Disposition: Home, Self-Care Condition: Good Functional capacity at discharge: independent ambulation Overall status at discharge: patient is progressing back to baseline - Discharge Instructions Instructions: Urinary Tract Infection in Women (DC), Sepsis (DC), Anemia (GEN) Follow Up With: Vernon Price MD [Partnered Physician] - Zoë Carrillo MD [Primary Care Provider] - Additional Instructions: Please continue 7 more days of levofloxacin 500 mg by mouth daily to finish total 10-day course of antibiotic treatment. You can use prescribed hydrocodone-acetaminophen 5-325 1 tablet by mouth every 6 hours as needed for severe pain. Please take prescribe magnesium oxide 400 mg by mouth three times a day for your low magnesium. Please follow up with your primary care provider within a week. Please follow up with your urologist within 1 to 2 weeks. - Diet and Activity Activity: increase activity as tolerated Diet: advance to your usual diet Hospital course: Ms. Cordero is a 46 year old female with PMH of recurrent kidney stones. Patient was admitted on 07/04 for urosepsis with obstructive uropathy and DEWAYNE (SCr 4.88) . Status post left ureteral stent placement on 07/04. Clinically improves since with IV fluid and antibiotics (1 day of Zosyn followed by 2 days of ceftriaxone) . UrinPatient's renal function improves with SCr 1.06 today. Patient was also noted to have hypokalemia and hypomagnesemia and K & Mg supplements were given. Latest serum K at 3.6 and Mg at 1.6 . Given those improvement, will discharge patient home with 7 more days of levofloxacin 500 mg PO daily to finish total 10 -day course of antibiotic treatment. Also okay to use prescribed hydrocodone- acetaminophen 5-325 1 tab PO q6H prn severe pain (#20, no refill). Will prescribe magnesium oxide 400 mg PO TID for her persistent hypomagnesemia. Patient will need follow up with PCP and her urologist within a week. - Time Spent with Patient Total time spent providing and/or coordinating discharge services: Greater than 30 minutes - Constitutional Vitals: Temp Pulse Resp BP Pulse Ox 98.6 F 93 18 122/76 98 07/07/16 11:40 07/07/16 11:40 07/07/16 11:40 07/07/16 11:40 07/07/16 11:40 General appearance: Present: cooperative, A&O X 3, no acute distress, answers questions appropriately - Head Head exam: Present: atraumatic, normocephalic - Eye Eye exam: Present: PERRL, conjuntiva pink, sclera anicteric - Neck Neck exam general surgery: Present: supple, trachea midline. Absent: lymphadenopathy - Respiratory Respiratory exam: Present: CTAB. Absent: accessory muscle use, rales, rhonchi, wheezes - Cardiovascular Cardiovascular exam: Present: RRR, +S1, +S2. Absent: diastolic murmur, gallop, rubs, systolic murmur - GI/Abdominal GI/Abdominal exam: Present: normal bowel sounds, soft, no peritoneal signs. Absent: distended, tenderness - Extremities Exam Extremities exam: Present: warm, radial pulses palpable and symetrical. Absent : calf tenderness, cyanotic, pedal edema - Neurological Exam Neurological exam: Present: CN II-XII intact, oriented X3, no focal deficits. Absent: pronater drift, facial droop, speech deficit - Skin Skin exam: Present: dry, intact. Absent: rash <Yamini Parrish - Last Filed: 07/07/16 19:24> Date of admission: 07/04/16 08:16 Primary care physician: Zoë Boyer [place] Hospital course: Ms. Cordero is a 46 year old female - Time Spent with Patient Total time spent providing and/or coordinating discharge services: - Constitutional Vitals: Temp Pulse Resp BP Pulse Ox 98.8 F 91 16 124/79 98 07/07/16 16:01 07/07/16 16:01 07/07/16 16:01 07/07/16 16:01 07/07/16 16:01 - Attending Attestation I examined this patient and reviewed laboratory, imaging and all diagnostic data. My medical decision-making was reviewed with Eh Clark-Kunal - Resident Physician. I agree with the documented findings, disposition and treatment plan as described above.
[2016-07-07 15:55] LABS: Magnesium 1.6 mg/dL (1.6-2.6); Potassium 3.6 mEq/L (3.5-4.5)
[2016-07-07 16:05] VITALS: BP 124/79
== END 2016-07-07 18:08 | disposition home or self-care (01) | DRG 854 ==
LOC: EMEROO 22:07 → 3ANU 22:07 → SUATTDRO 07-04 08:16
PROVIDERS: ADMIT Internal Medicine; ATTEND Internal Medicine

== ENCOUNTER 2020-07-03 06:10 | Observation (INO) ==
[2020-07-03] MEDS ORDERED: Ketorolac 30 MG/ML VIAL IVP ONE (06:15)
[2020-07-03] MEDS ORDERED: Ondansetron 4 MG/2 ML VIAL IVP ONE (06:15)
[2020-07-03 07:38] LABS: Bacteria,Urine Few per hpf (None-Few); Bilirubin,Urine Negative (Negative); Blood,Urine Moderate (Negative); Clarity,Urine Turbid (Clear); Color,Urine Yellow (Yellow); Glucose,Urine (UA) Normal (Normal); Hyaline Casts,Urine Many per lpf (None Seen); Ketones,Urine Negative (Negative); Leukocyte Esterase,Urine Small (Negative); Mucus,Urine Few per lpf (None-Few); Nitrite,Urine Negative (Negative); Protein,Urine 100 mg/dL (Neg-Trace); RBC,Urine TNTC per hpf (0-3); Specific Gravity,Urine 1.028 (1.010-1.025); Squamous Epithelial Cell,Urine Moderate per hpf (None-Few); Urobilinogen,Urine Normal (Normal); WBC,Urine 15-30 per hpf (0-3)
[2020-07-03 07:40] LABS: Basophils # 0.1 K/mcL (0.0-0.2); Basophils % 0.7 %; Eosinophils % 0.1 %; Hematocrit 40.6 % (35.3-44.9); Hemoglobin 13.4 g/dL (11.5-15.4); Immature Granulocytes % 0.2 % (0-4); Lymphocytes # 1.4 K/mcL (0.6-4.6); Lymphocytes % 16.5 %; Mean Corpuscular Hemoglobin 28.8 pg (28.0-33.3); Mean Corpuscular Volume 87.1 fL (83.0-100.0); Mean Platelet Volume 10.8 fL (9.4-12.4); Monocytes # 0.6 K/mcL (0.0-1.3); Neutrophils # 6.5 K/mcL (1.6-8.9); Platelet Count 335 K/mcL (140-400); Red Blood Count 4.66 M/mcL (3.82-4.97); Red Cell Distribution Width 13.5 % (11.5-14.5); Segmented Neutrophils % 75.5 %; White Blood Count 8.7 K/mcL (4.3-11.1)
[2020-07-03 07:54] LABS: Albumin 4.1 g/dL (3.5-5.7); Albumin/Globulin Ratio 1.2 (1.1-2.2); Bilirubin,Indirect 0.4 mg/dL (0.0-1.0); Bilirubin,Total 0.4 mg/dL (0.3-1.0); Globulin 3.4 g/dL (2.4-3.5); Total Protein 7.5 g/dL (6.4-8.9)
[2020-07-03] MEDS ORDERED: *HR* HYDROmorphone (PF) 1 MG/ML SYRINGE IVP ONE (07:55)
[2020-07-03] MEDS ORDERED: 0.9 % Sodium Chloride 1,000 ML IVC ONE (07:57)
[2020-07-03] MEDS ORDERED: Potassium Chloride 40 MEQ, Lidocaine 1% 2 ML in D5% in Water 500 ML IVPB ONE (07:57)
[2020-07-03] MEDS ORDERED: Naloxone 0.4 MG/ML INJ IVP PRN ×2 (08:16→12:18)
[2020-07-03] MEDS ORDERED: *HR* HYDROmorphone (PF) 1 MG/ML SYRINGE IVP PRN (08:44)
[2020-07-03] MEDS ORDERED: *HR* Meperidine 25 MG/ML SYRINGE IVP PRN (08:44)
[2020-07-03] MEDS ORDERED: cefTRIAXone 1,000 MG in 0.9 % Sodium Chloride Mini Bag 100 ML IVPB ONE ×2 (09:00→12:18)
[2020-07-03] MEDS ORDERED: Ondansetron 4 MG/2 ML VIAL IVP PRN (09:17)
[2020-07-03] MEDS ORDERED: Isovue-300 50ML VIAL ONE (10:44)
[2020-07-03] MEDS ORDERED: *HR* Propofol 200 MG/20 ML VIAL IVP ONE (11:01)
[2020-07-03] MEDS ORDERED: *HR* FentaNYL (PF) 100 MCG/2 ML VIAL ONE (11:01)
[2020-07-03] MEDS ORDERED: Dexamethasone 4 MG/ML VIAL ONE (11:02)
[2020-07-03] MEDS ORDERED: Ondansetron 4 MG/2 ML VIAL ONE (11:02)
[2020-07-03] MEDS ORDERED: Lidocaine -MPF 2% 2 ML VIAL ONE (11:02)
[2020-07-03] MEDS ORDERED: *HR* OxyCODONE Immed Rel 5 MG TABLET PO PRN (12:18)
[2020-07-03] MEDS ORDERED: Acetaminophen 325 MG TABLET PO PRN (12:18)
[2020-07-03] MEDS ORDERED: *HR* Heparin 5,000 UNIT/ML VIAL SQ SCH (14:00)
[2020-07-03] MEDS: *HR* Heparin 5,000 UNIT/ML VIAL SQ SCH ×2 (15:20→20:39)
[2020-07-03] MEDS ORDERED: MethylPREDNISolone 40 MG/ML VIAL IVP ONE (16:31)
[2020-07-03] MEDS: *HR* HYDROcodone/Acet 5/325 mg TABLET PO PRN (17:52)
[2020-07-04 01:40] LABS: Basophils % 0.2 %; Hematocrit 37.6 % (35.3-44.9); Hemoglobin 12.3 g/dL (11.5-15.4); Immature Granulocytes % 0.3 % (0-4); Lymphocytes % 15.4 %; Mean Corpuscular HGB Conc 32.7 g/dL (31.6-35.5); Mean Corpuscular Hemoglobin 29.2 pg (28.0-33.3); Mean Corpuscular Volume 89.3 fL (83.0-100.0); Mean Platelet Volume 11.2 fL (9.4-12.4); Monocytes # 0.1 K/mcL (0.0-1.3); Monocytes % 1.8 %; Neutrophils # 5.5 K/mcL (1.6-8.9); Platelet Count 346 K/mcL (140-400); Red Blood Count 4.21 M/mcL (3.82-4.97); Red Cell Distribution Width 13.4 % (11.5-14.5); Segmented Neutrophils % 82.3 %; White Blood Count 6.6 K/mcL (4.3-11.1)
[2020-07-04 02:02] LABS: Calcium 8.6 mg/dL (8.6-10.3); Potassium 3.6 mEq/L (3.5-5.1)
[2020-07-04] MEDS: *HR* HYDROcodone/Acet 5/325 mg TABLET PO PRN (03:42)
[2020-07-04] MEDS: *HR* Heparin 5,000 UNIT/ML VIAL SQ SCH (05:50)
[2020-07-04] MEDS ORDERED: cefTRIAXone 1,000 MG in Water for inj. (sterile) 10 ML IVP SCH (09:00)
[2020-07-04 10:52] VITALS: BP 100/60
== END 2020-07-04 13:16 | disposition home or self-care (01) ==
LOC: 3NENU 06:10 → EMEROOARM 06:10 → 3NENU 09:02
PROVIDERS: ADMIT Internal Medicine; ATTEND Internal Medicine

== ENCOUNTER 2021-09-26 01:09 | Inpatient (IN) ==
[2021-09-26] MEDS ORDERED: Ondansetron 4 MG/2 ML VIAL IVP ONE (01:43)
[2021-09-26] MEDS ORDERED: 0.9 % Sodium Chloride 1,000 ML IVC ONE ×2 (01:43→02:22)
[2021-09-26] MEDS ORDERED: Ketorolac 30 MG/ML VIAL IVP ONE (01:43)
[2021-09-26 02:10] LABS: Basophils # 0.1 K/mcL (0.0-0.2); Basophils % 0.4 %; Eosinophils % 0.1 %; Hematocrit 46.1 % (35.3-44.9); Hemoglobin 15.4 g/dL (11.5-15.4); Immature Granulocytes % 0.3 % (0-4); Lymphocytes # 2.1 K/mcL (0.6-4.6); Lymphocytes % 14.3 %; Mean Corpuscular HGB Conc 33.4 g/dL (31.6-35.5); Mean Corpuscular Hemoglobin 29.6 pg (28.0-33.3); Mean Corpuscular Volume 88.5 fL (83.0-100.0); Mean Platelet Volume 10.8 fL (9.4-12.4); Monocytes # 0.9 K/mcL (0.0-1.3); Neutrophils # 11.3 K/mcL (1.6-8.9); Platelet Count 322 K/mcL (140-400); Red Blood Count 5.21 M/mcL (3.82-4.97); Segmented Neutrophils % 78.9 %; White Blood Count 14.4 K/mcL (4.3-11.1)
[2021-09-26 02:18] LABS: Bilirubin,Urine Negative (Negative); Blood,Urine Negative (Negative); Clarity,Urine Clear (Clear); Color,Urine Yellow (Yellow); Glucose,Urine (UA) Normal (Normal); Granular Casts,Urine Few per lpf (None Seen); Hyaline Casts,Urine Moderate per lpf (None Seen); Ketones,Urine Negative (Negative); Leukocyte Esterase,Urine Negative (Negative); Mucus,Urine Few per lpf (None-Few); Nitrite,Urine Negative (Negative); Protein,Urine 70 mg/dL (Neg-Trace); RBC,Urine 0-3 per hpf (0-3); Specific Gravity,Urine 1.024 (1.010-1.025); Squamous Epithelial Cell,Urine Few per hpf (None-Few); Urobilinogen,Urine Normal (Normal); WBC,Urine 0-3 per hpf (0-3)
[2021-09-26 02:22] LABS: Albumin 4.5 g/dL (3.5-5.7); Albumin/Globulin Ratio 1.3 (1.1-2.2); Bilirubin,Indirect 0.6 mg/dL (0.0-1.0); Bilirubin,Total 0.6 mg/dL (0.3-1.0); Calcium 9.6 mg/dL (8.6-10.3); Globulin 3.5 g/dL (2.4-3.5); Potassium 3.1 mEq/L (3.5-5.1)
[2021-09-26] MEDS ORDERED: Naloxone 0.4 MG/ML INJ IVP PRN ×2 (02:52→18:13)
[2021-09-26] MEDS ORDERED: Acetaminophen 325 MG TABLET PO PRN ×2 (02:52→18:13)
[2021-09-26] MEDS ORDERED: Melatonin 3 MG TABLET PO PRN ×2 (02:52→18:13)
[2021-09-26] MEDS ORDERED: Ondansetron 4 MG/2 ML VIAL IVP PRN ×3 (02:52→18:13)
[2021-09-26] MEDS ORDERED: D5% in Water 1,000 ML IVC PRN ×2 (02:54→18:13)
[2021-09-26] MEDS ORDERED: *HR* Dextrose 50 % in Water (Syg) 50 ML SYRINGE IVP PRN ×2 (02:54→18:13)
[2021-09-26] MEDS ORDERED: Dextrose Gel 15 GM/37.5 ML TUBE PO PRN ×4 (02:54→18:13)
[2021-09-26] MEDS ORDERED: 0.9 % Sodium Chloride 1,000 ML IVC SCH (03:00)
[2021-09-26] MEDS: 0.9 % Sodium Chloride 1,000 ML IVC SCH ×2 (04:49→05:30)
[2021-09-26] MEDS ORDERED: Saliva Stimulant 44.3ml BOTTLE PO PRN ×2 (04:52→18:13)
[2021-09-26] MEDS: Ringers Solution, Lactated 1,000 ML IVC SCH ×3 (05:02→22:52)
[2021-09-26 05:30] LABS: Basophils # 0.1 K/mcL (0.0-0.2); Basophils % 0.5 %; Hematocrit 36.7 % (35.3-44.9); Immature Granulocytes % 0.3 % (0-4); Lymphocytes # 1.6 K/mcL (0.6-4.6); Lymphocytes % 15.6 %; Mean Corpuscular Hemoglobin 29.9 pg (28.0-33.3); Mean Corpuscular Volume 90.6 fL (83.0-100.0); Mean Platelet Volume 11.1 fL (9.4-12.4); Monocytes # 0.5 K/mcL (0.0-1.3); Neutrophils # 8.1 K/mcL (1.6-8.9); Platelet Count 226 K/mcL (140-400); Red Blood Count 4.05 M/mcL (3.82-4.97); Red Cell Distribution Width 12.9 % (11.5-14.5); Segmented Neutrophils % 78.6 %; White Blood Count 10.2 K/mcL (4.3-11.1)
[2021-09-26 05:31] LABS: Hemoglobin 12.1 g/dL (11.5-15.4)
[2021-09-26 05:35] LABS: INR 1.1; Prothrombin Time 12.3 Seconds (9.4-12.1)
[2021-09-26 05:38] LABS: Activated Partial Thrombo Time 27.8 Seconds (26.0-36.0)
[2021-09-26 05:50] LABS: Albumin 3.6 g/dL (3.5-5.7); Albumin/Globulin Ratio 1.5 (1.1-2.2); Bilirubin,Total 0.5 mg/dL (0.3-1.0); Calcium 7.8 mg/dL (8.6-10.3); Globulin 2.4 g/dL (2.4-3.5); Magnesium 1.2 mg/dL (1.6-2.6); Phosphorous 2.8 mg/dL (2.7-4.5); Potassium 2.9 mEq/L (3.5-5.1)
[2021-09-26] MEDS ORDERED: cefTRIAXone 2,000 MG in 0.9 % Sodium Chloride Mini Bag 100 ML IVPB SCH (09:00)
[2021-09-26 13:49] LABS: Potassium,Urine 10.9 mEq/L; Protein/Creatinine Ratio,Urine 0.6 mg/mg (0.00-0.20); Sodium, Urine 139.9 mEq/L
[2021-09-26] MEDS ORDERED: Ondansetron 4 MG/2 ML VIAL ONE (15:24)
[2021-09-26] MEDS ORDERED: Lidocaine -MPF 2% 2 ML VIAL ONE (15:24)
[2021-09-26] MEDS ORDERED: *HR* Propofol 200 MG/20 ML VIAL IVP ONE (15:24)
[2021-09-26] MEDS ORDERED: Iopamidol - 300 50 ML VIAL ONE (15:52)
[2021-09-26] MEDS ORDERED: *HR* FentaNYL (PF) 100 MCG/2 ML VIAL ONE (16:07)
[2021-09-26] MEDS ORDERED: *HR* Midazolam HCl 2 MG/2 ML VIAL ONE (16:07)
[2021-09-26] MEDS ORDERED: *HR* HYDROmorphone PF 0.5 MG/0.5 ML SYRINGE IVP PRN (16:13)
[2021-09-26] MEDS ORDERED: Ringers Solution, Lactated 1,000 ML ONE (18:18)
[2021-09-26] MEDS: Calcium Gluconate 1gm/50mL 1 GM/50 ML BAG IVPB SCH ×3 (20:06→22:51)
[2021-09-27 05:46] LABS: Basophils % 0.1 %; Hemoglobin 11.2 g/dL (11.5-15.4); Immature Granulocytes % 0.3 % (0-4); Lymphocytes % 14.7 %; Mean Corpuscular HGB Conc 32.9 g/dL (31.6-35.5); Mean Corpuscular Hemoglobin 29.9 pg (28.0-33.3); Mean Corpuscular Volume 90.9 fL (83.0-100.0); Monocytes # 0.3 K/mcL (0.0-1.3); Monocytes % 3.7 %; Neutrophils # 5.8 K/mcL (1.6-8.9); Platelet Count 240 K/mcL (140-400); Red Blood Count 3.74 M/mcL (3.82-4.97); Red Cell Distribution Width 12.8 % (11.5-14.5); Segmented Neutrophils % 81.2 %; White Blood Count 7.1 K/mcL (4.3-11.1)
[2021-09-27 06:01] LABS: Calcium 8.7 mg/dL (8.6-10.3); Magnesium 1.9 mg/dL (1.6-2.6); Phosphorous 3.5 mg/dL (2.7-4.5); Potassium 3.9 mEq/L (3.5-5.1)
[2021-09-27] MEDS: Ringers Solution, Lactated 1,000 ML IVC SCH ×2 (07:58→18:27)
[2021-09-27] MEDS ORDERED: cefTRIAXone 2,000 MG in 0.9 % Sodium Chloride Mini Bag 100 ML IVPB SCH (09:00)
[2021-09-28] MEDS: Ringers Solution, Lactated 1,000 ML IVC SCH (04:27)
[2021-09-28 06:10] LABS: Basophils % 0.5 %; Eosinophils % 0.2 %; Hematocrit 31.7 % (35.3-44.9); Immature Granulocytes % 0.3 % (0-4); Lymphocytes # 2.3 K/mcL (0.6-4.6); Lymphocytes % 34.2 %; Mean Corpuscular HGB Conc 33.1 g/dL (31.6-35.5); Mean Corpuscular Hemoglobin 30.3 pg (28.0-33.3); Monocytes # 0.4 K/mcL (0.0-1.3); Monocytes % 6.2 %; Neutrophils # 3.9 K/mcL (1.6-8.9); Platelet Count 236 K/mcL (140-400); Red Blood Count 3.47 M/mcL (3.82-4.97); Red Cell Distribution Width 13.2 % (11.5-14.5); Segmented Neutrophils % 58.6 %; White Blood Count 6.6 K/mcL (4.3-11.1)
[2021-09-28 06:12] LABS: Hemoglobin 10.5 g/dL (11.5-15.4); Mean Corpuscular Volume 91.4 fL (83.0-100.0)
[2021-09-28 06:26] LABS: Calcium 8.7 mg/dL (8.6-10.3); Potassium 3.5 mEq/L (3.5-5.1)
[2021-09-28] MEDS ORDERED: Cefdinir 300 MG CAPSULE PO SCH (09:00)
[2021-09-28 12:21] VITALS: BP 136/81; PULSE 86; TEMP 98.1; O2SAT 96
== END 2021-09-28 17:33 | disposition home or self-care (01) | DRG 853 ==
LOC: EMEROOARM 01:09 → 3ANU 01:09 → SUATTDRO 02:57 → 3ANU 03:20 → SUATTDRO 09-27 14:29
PROVIDERS: ADMIT Internal Medicine; ATTEND General Practice